=== PATIENT | male | born 1995 | race Two or more races ===

== ENCOUNTER 2022-04-30 13:26 | Emergency (ER) | payer OTHER ==
[~2022-04-30] VITALS: Ht 170.2 cm; Wt 81.6 kg
== END 2022-04-30 17:52 | disposition home or self-care (01) ==
LOC: ER 13:26
DX: H10.13 Acute atopic conjunctivitis, bilateral (principal); Z88.8 Allergy status to other drugs, medicaments and biological substances

== ENCOUNTER 2022-07-02 09:10 | Emergency (ER) | payer OTHER ==
[~2022-07-02] VITALS: Ht 170.2 cm; Wt 83.9 kg
== END 2022-07-02 17:13 | disposition home or self-care (01) ==
LOC: ER 09:10
DX: K52.9 Noninfective gastroenteritis and colitis, unspecified (principal); Z88.0 Allergy status to penicillin; Z20.822 Contact with and (suspected) exposure to COVID-19